=== PATIENT | male | born 1955 | race Caucasian/White ===

== ENCOUNTER 2024-04-14 08:39 | Emergency (ER) | payer OTHER, SELFPAY ==
[2024-04-14 08:45] VITALS: BP 242/111
--- NOTE | 2024-04-14 09:11 | ED.GENMED ---
History of Present Illness
General
Chief Complaint: Blood Pressure Problem
Source: patient and spouse
Exam Limitations: none
Time Seen by Provider: 04/14/24 09:07
Nursing documentation reviewed up to this point in time: agreed with
History of Present Illness
History of Present Illness:
68-year-old male with a past medical history of DON, anxiety who presents to the emergency room with his for evaluation of hypertension. Patient reports that over the past few years when he goes to his annual doctor's appointment he has
noticed his blood pressure has been gradually rising. He says that he had an appointment last week and that his blood pressure was very high�he says between 170 and 190. He says that his primary doctor recommended he watch it closely but did not
start him on any medication. He says that he bought a home blood pressure cuff and has been checking his blood pressure a few times a day over the past few days. He says that he has noticed gradual increase in his blood pressure since then today
peaked over 200 and so he came to the emergency room to be assessed. He complains of some mild fatigue but denies any other complaints. He denies any headache. Denies any change in his vision. He denies any change in speech. Denies any focal
weakness or numbness in his extremities. He denies any chest pain or shortness of breath. He currently only takes medication for anxiety. He has had no recent change in his diet�in fact his offers that he is quite careful with his diet main
intake of salt is from deli meat that he takes at lunch but otherwise low salt intake. He does not exercise very much he admits. He does use nicotine in the form of vaping. Denies drug or alcohol use. Denies any recent stressors.
Past History
Past History
ED Past Medical History: None and Other (Renal insufficiency, diverticulosis, previous prostate cancer with CyberKnife surgery, diverticulitis); Negative HTN, Hypercholesterolemia, IDDM or NIDDM
ED Past Surgical History: None
Social History
Tobacco: Former smoker
Alcohol: None
Family History
Family History: Other (Mother with lung cancer, father with COPD)
Review of Systems
Review of Systems
All Other Systems: ROS reviewed and negative except as documented in HPI and ROS
Constitutional: Reports fatigue; Denies fever
Respiratory: Denies trouble breathing
Cardiac: Denies chest pain
ABD/GI: Denies abdominal pain
: Denies flank pain
Musculoskeletal: Denies edema, neck pain or back pain
Neurological: Denies dizzy, headache, weakness or numbness
Phy Exam
Physical Exam
Physical Exam:
General: Awake, alert, oriented x3; no acute distress
Head: Normocephalic, atraumatic
Eyes: Conjunctiva normal, pupils equal round and reactive to light bilaterally
Throat: Airway intact, handling secretions
Neck: Trachea midline, supple without meningismus
Lungs: Clear to auscultation bilaterally, no wheezing, rales, rhonchi
Heart: Regular rate and rhythm, S3 gallop appreciated
Abd: Soft, non distended, nontender
Neuro: Cranial nerves intact, speech fluid, no motor or sensory deficits
Skin: no rash
Extremities: No edema in extremities, equal pulses in all extremities
Scores
Heart Failure Risk
Heart Failure Risk Score: Not Applicable
Heart Score for Chest Pain Patients
STEMI patient?: Not applicable
Withdrawal Assessment of Alcohol
Withdrawal Assessment Completed?: Not applicable
Course
Orders/Labs/Results
Orders:
Orders
04/14/24 08:50
Electrocardiogram (*1) Urgent
Reason for Study: Hypertension, Benign
EKG- Treatment ONCE
04/14/24 09:17
Vital Signs- Treatment ONCE
Frequency: q30m
04/14/24 09:25
Complete Blood Count/With Diff Urgent
Comprehensive Metabolic Panel Urgent
04/14/24 09:55
HydrALAZINE [Apresoline] 10 mg IV NOW STA
Lisinopril [Zestril] 10 mg PO NOW STA
04/14/24 09:56
Amlodipine [Norvasc] 5 mg PO ONCE ONE
04/14/24 09:58
Lisinopril [Zestril] 10 mg PO NOW STA
Abnormal Lab Results
04/14/24
09:25
RBC 4.60 L 10^6/uL
(4.70-6.10)
Hgb 12.4 L g/dL
(13.0-18.0)
Hct 36.7 L %
(39.0-52.0)
MCV 79.8 L fL
(80.0-94.0)
Absolute Lymphs (auto) 0.9 L 10^3/uL
(1.2-3.4)
Neutrophils % 77.8 H %
(42.2-75.2)
Lymphocytes % 11.3 L %
(20.5-51.1)
BUN 31 H mg/dl
(9-20)
Creatinine 1.5 H mg/dL
(0.7-1.3)
04/14/24 09:25
04/14/24 09:25
Vital Signs
Initial and Last Documented VS:
Initial Vital Signs
Temp Pulse Resp BP Pulse Ox
36.7 C 69 16 242/111 98
04/14/24 08:45 04/14/24 08:45 04/14/24 08:45 04/14/24 08:45 04/14/24 08:45
Last Documented Vital Signs
Temp Pulse Resp BP Pulse Ox
36.7 C 66 16 164/66 95
04/14/24 08:45 04/14/24 11:00 04/14/24 11:02 04/14/24 11:00 04/14/24 11:00
MDM/Problems Addressed
Differential Diagnosis Includes:
Asymptomatic hypertension
MDM/Problems Addressed:
68-year-old male presents with asymptomatic hypertension�gradual increase over the past few years patient has been watching closely over the past week since his recent PCP visit and has noticed that it has been running very high. He arrives in
triage with a blood pressure of 242/111 although it had improved to 197/89 by the time of my assessment without any intervention. Rest of vitals are normal. Physical exam as above. Will plan to check basic screening labs. Will check an EKG.
Will treat blood pressure�will give some IV hydralazine; reasonable to initiate MARIAH inhibitor. Reassess after the above.
Initial labs reviewed: CBC shows marginal anemia otherwise unremarkable. CMP shows creatinine of 1.5 which is consistent with prior labs. Continue to monitor.
Blood pressure is greatly improved with treatment here. Stable for discharge will start on oral lisinopril. He will follow-up with his primary care physician. We spoke at length about his lab work�we discussed his mild microcytic anemia he will
start a multivitamin with iron and have repeat blood work with his primary doctor. We spoke about his creatinine level�this is stable for him, he says that he has had this in the past, possibly related to a case of nephritis as a child. We spoke
about cardiac murmur appreciated on exam today�will refer to cardiology for outpatient follow-up. We spoke about lifestyle adjustments including a low intensity exercise regimen (we discussed going for 10 to 15-minute walk daily to start and
monitoring of sodium intake). Patient very comfortable with this plan. Spoke about return precautions all questions answered.
Acute Exacerbation and/or Progression of Chronic Illness:
Acutely hypertensive managed as above
Acute Exacerbation and/or Progression of Chronic Illness: HTN
*Pulse Oximetry
Patient hypoxic: no
*EKG
Interpreted by ED Provider?: Yes
Heart Rate: 72
Rate: normal
Rhythm: sinus
[place]: normal axis
Interval: first degree heart block
QRS Pattern: normal QRS
Ischemia: no ischemia
*Critical Care Note
Total Time (30-74mins, 75-104mins- exclusive of procedures): Not Applicable
Data Reviewed
Review of Other/Old Records Reveals: Labs and Records
Source: patient and spouse
ED Attending Note
-
Portions of this chart may have been created with voice recognition software.� Occasional wrong word or��sound alike� substitutions may have occurred due to the inherent limitations of voice recognition software.
Discharge Plan
Departure
Patient Disposition: Home (Routine Discharge)
Date of Disposition: 04/14/24
Time of Disposition: 11:08
Patient with high blood pressure during this ER visit?: Yes
Discharge Problem:
Hypertension, Heart murmur, Chronic kidney disease (CKD), Anemia
Instructions: High Blood Pressure (DC)
Prescriptions:
New
lisinopril 10 mg tablet
10 mg PO DAILY Qty: 30 0RF
No Action
alprazolam 0.5 MG tablet
1 mg PO HS
polyethylene glycol 3350 [Miralax] 17 gram Powder In Packet
17 g PO DAILY PRN (Reason: constipation)
sertraline 100 mg tablet
100 mg PO HS
simethicone 80 mg Tablet,Chewable
80 mg PO TIDPRN PRN (Reason: bloating)
acetaminophen [acetaminophen] 325 mg tablet
650 mg PO Q4HPRN PRN (Reason: mild pain) Qty: 1 0RF
oxycodone 5 mg tablet
5 mg PO Q4HPRN PRN (Reason: breakthrough/severe pain) Qty: 8 0RF
amoxicillin-pot clavulanate [amoxicillin-pot clavulanate] 875-125 mg tablet
1 tab PO Q12 Qty: 8 0RF
Referrals:
Berhane Potter MD [Family Provider] - Follow up in 5-7 days
Eulogio Genao DO [Active] - Call in 1-3 days for appt (Police Patrol Officer)
Activity Restrictions/Additional Instructions:
Thank you for visiting the Emergency Department at [facility].
1. Please schedule a follow up appointment as directed. Call first thing tomorrow morning to make an appointment.
2. If indicated, please take your medications as instructed and indicated on discharge paperwork.
3. If any of your symptoms do not improve, or persist, or become more severe within 6-12 hours, please return to the emergency department for further care.
4. Please return to the emergency department if you develop a headache, neck pain/stiffness, fever greater than 100.4F, chest pain, shortness of breath, persistent nausea, vomiting, slurred speech, difficulty walking, numbness/tingling, weakness,
signs of infection or any other symptoms that are worrisome to you.
Please call [phone] if you have any questions.
Interventions
Interventions:
*Risk Screen - Suicide Last Done: 04/14/24 10:04
*General Assessment Last Done: 04/14/24 10:04
*Neglect/Abuse Screening Last Done: 04/14/24 10:04
ED- Fall Risk Assessment Last Done: 04/14/24 11:10
*ED COVID-19 Vaccine History Last Done: 04/14/24 10:04
ED- Cardiac Assessment Last Done: 04/14/24 10:04
ED- Neurological Assessment Last Done: 04/14/24 10:04
ED- Pulmonary Assessment Last Done: 04/14/24 10:04
Discharge Date and Time
Print Language: MALTESE
[2024-04-14 09:21] VITALS: BP 197/89
[2024-04-14 09:36] LABS: % Basophils 0.7 % (0-2); % Immature Granulocytes 0.5 % (0-0.5); % Lymphocytes 11.3 % (20.5-51.1); % Monocytes 7.7 % (1.7-9.3); % Neutrophils 77.8 % (42.2-75.2); Absolute Basophils 0.1 10^3/uL (0-0.2); Absolute Eosinophils 0.2 10^3/uL (0-0.7); Absolute Lymphocytes 0.9 10^3/uL (1.2-3.4); Absolute Monocytes 0.6 10^3/uL (0.1-0.6); Absolute Neutrophils 6.3 10^3/uL (1.4-6.5); Hematocrit 36.7 % (39.0-52.0); Hemoglobin 12.4 g/dL (13.0-18.0); Mean Corp Hgb Conc. 33.8 g/dL (33.0-37.0); Mean Corpuscular Volume 79.8 fL (80.0-94.0); Mean Platelet Volume 9.4 fL (7.4-10.4); Nucleated Red Blood Cells % 0 % (-); Platelet Count 256 10^3/uL (130-400); Red Cell Dist. Width 14.4 % (11.5-14.5); White Blood Cell Count 8.1 10^3/uL (4.8-10.8)
[2024-04-14 09:51] LABS: ALT (SGPT) 16 U/L (0-50); AST (SGOT) 24 U/L (17-59); Albumin 4.5 g/dl (3.5-5.0); Alkaline Phosphatase 65 U/L (38-126); Blood Urea Nitrogen 31 mg/dl (9-20); Calcium 9.6 mg/dl (8.4-10.2); Carbon Dioxide 27 mmol/L (22-30); Chloride 103 mmol/L (98-107); Glucose 95 mg/dl (70-99); Potassium 4.4 mmol/L (3.5-5.1); Sodium 138 mmol/L (135-145); Total Bilirubin 0.6 mg/dl (0.2-1.3); Total Protein 7.3 g/dl (6.3-8.2); eGFR 51.03
[2024-04-14 10:00] VITALS: BP 176/83
[2024-04-14] MEDS: ZESTRIL 10 MG PO (10:01)
[2024-04-14] MEDS: APRESOLINE 10 MG IV (10:01)
[2024-04-14 11:00] VITALS: BP 164/66
== END 2024-04-14 11:26 | disposition home or self-care (01) ==
LOC: EMR 08:39
PROVIDERS: EMERGENCY PHYSICIAN Emergency Medicine; FAMILY PHYSICIAN Family Medicine
DX: R53.83 Other fatigue (principal); I12.9 Hypertensive chronic kidney disease with stage 1 through stage 4 chronic kidney disease, or unspecified chronic kidney disease; N18.9 Chronic kidney disease, unspecified; D64.9 Anemia, unspecified; R01.1 Cardiac murmur, unspecified; I44.0 Atrioventricular block, first degree; D50.9 Iron deficiency anemia, unspecified; G47.33 Obstructive sleep apnea (adult) (pediatric); F41.9 Anxiety disorder, unspecified; K57.92 Diverticulitis of intestine, part unspecified, without perforation or abscess without bleeding; Z79.899 Other long term (current) drug therapy; Z85.46 Personal history of malignant neoplasm of prostate; Z87.891 Personal history of nicotine dependence
CPT/HCPCS: 99284; 96374; 80053; 85025; 93005

== ENCOUNTER 2024-10-06 19:56 | Observation (INO) | payer OTHER, SELFPAY ==
[2024-10-06] VITALS (20 sets, daily range): BP systolic 133–207; BP diastolic 64–97; BMI 27.6; BMI 27.0
[2024-10-06 17:21] LABS: Glucose - Point of Care 130 mg/dl (70-99)
--- NOTE | 2024-10-06 17:30 | CON.NEURO ---
Consultation
Order
Date of Consultation: 10/06/24
Requesting Provider: Emery Robertson DO
Reason for Consult: Stroke alert 17:03
Neurology Consultation Note.
HPI: This is a 68-year-old man who presented to [facility] on 10/06/2024 with diplopia. According to the patient he developed an acute painless horizontal diplopia worse with left lateral gaze that occurred at 10:30 AM today. No
associated dysarthria, dysmetria, weakness, sensory deficits, headache or similar episodes in the past. His symptoms have been persistent prompting the evaluation.
Mr. Bourne admits to discontinuing lisinopril due to Raynaud's symptoms.
ER VS: 200/89, 75, afebrile
EKG: NSR, QTc Int : 428 ms
PDMP: Alprazolam 0.5 Mg 60 tabs filled in on 09/18/2024, 08/21/2024, 07/25/2024.
Labs: FS 130
CT head wo contrast-no active infarcts, mild atrophy, advanced for chronological age
PMH: prostate cancer, HTN, CKD, anemia, DON, DANA, insomnia, AAA, diverticulosis macular degeneration,
PSH: laparoscopic appendectomy
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
FH:uncle�stroke, mother�lung cancer, father�COPD
All:NKDA
ROS: Constitutional: Negative. Negative for chills, fever and unexpected weight change.
HENT: Negative for ear pain, hearing loss, tinnitus and trouble swallowing.
Respiratory: Negative for cough, choking and shortness of breath.
Cardiovascular: Negative for chest pain, palpitations and leg swelling.
Gastrointestinal: Negative for abdominal pain and vomiting.
Endocrine: Negative. Negative for cold intolerance.
Genitourinary: Negative for dysuria, flank pain and urgency.
Musculoskeletal: Negative for back pain, gait problem, neck pain and neck stiffness.
Skin: Negative for rash.
Allergic/Immunologic: Negative. Negative for immunocompromised state.
Neurological: positive for diplopia
Psychiatric/Behavioral: Negative for behavioral problems, confusion and hallucinations.
General: Well developed. In no acute distress.
Cardio: Regular rate and rhythm without murmur. Extremities are without cyanosis or edema.
Neuro:
Mental Status: Alert, oriented to person, place, and date. Normal attention and recall. Good fund of knowledge. Follows complex requests across the midline. Comprehension, naming, and repetition intact. Immediate and delayed recall 3/3.
Cranial Nerves: Pupils are equally round and reactive to light. EOMs full. Horizontal diplopia on left lateral gaze visual cintron full to confrontation. No ptosis. No nystagmus. V1-V3 intact to light touch and pinprick bilaterally, symmetric.
Face symmetric. Normal hearing AU. The palate elevated well. SCMs and traps 5/5. Tongue midline. No dysarthria.
Motor: Normal bulk and tone. No pronator or arm drift. Strength 5/5 throughout. No clonus.
Sensory: Normal LT
Coordination: No dysmetria or tremor.
Gait: deferred
Assessment and Plan:
I. Acute left CN . Differential diagnosis includes vascular versus neuromuscular junction disorder. Not a candidate for IV TNK due to timing of the symptoms onset.
II. Hypertensive emergency
III. DON, CPAP intolerant
-Continue Telemetry monitoring.
-Utilize eyepatch
-Aspiration precautions.
-Cautious lowering of BP by approximately 15 % during the first 24 hours is SBP >220 mmHg or diastolic blood pressure >120 mmHg;
-Restart antihypertensive medications during if BP>140/90 mmHg who are neurologically stable in 24 to 48 hours after stroke onset;
-Brain MRI wo dana
-Start ASA 81 mg QD indefinitely.
-Plavix 75 mg QD for 21 days.
-Lipitor 40 mg QHS.
-MG panel if brain MRI is unremarkable and symptoms ongoing
-Please check HbA1C, LDL.
-DVT prophylaxis.
I personally reviewed all radiology and labs along with past medical records pertinent to current medical problems. Total time spent in patient care is 60 minutes.
Thank you for allowing us to participate in the care of this patient. We will continue to follow. Please do not hesitate to contact us with any questions or concerns.
Subjective/Objective
Subjective Data
Date of Service: October 06, 2024
Objective Data
Vital Signs
Temp Pulse Resp BP Pulse Ox
36.8 C 75 18 200/89 99
10/06/24 17:00 10/06/24 17:00 10/06/24 17:00 10/06/24 17:00 10/06/24 17:00
Patient Allergies
No Known Allergies Allergy (Verified 10/06/24 17:03)
Medications
-
Home Medications
�Medication �Instructions �Recorded
alprazolam 0.5 mg tablet 1 mg PO HS Mental Health/Anxiety 08/04/18
polyethylene glycol 3350 17 gram 17 g PO DAILY PRN constipation 04/25/23
oral powder packet (Miralax)
sertraline 100 mg tablet 100 mg PO HS Mental Health 04/25/23
simethicone 80 mg chewable tablet 80 mg PO TIDPRN PRN bloating 04/25/23
acetaminophen 325 mg tablet 650 mg (2 x 325 mg) PO Q4HPRN PRN 04/26/23
mild pain #1 tab
amoxicillin 875 mg-potassium 1 tab PO Q12 antibiotic #8 tabs 04/26/23
clavulanate 125 mg tablet
oxycodone 5 mg tablet 5 mg PO Q4HPRN PRN 04/26/23
breakthrough/severe pain #8 tabs
lisinopril 10 mg tablet 10 mg PO DAILY #30 tabs 04/14/24
--- NOTE | 2024-10-06 17:33 | ED.CVA ---
History of Present Illness
General
Chief Complaint: CVA/TIA Symptoms
Source: patient and spouse
Time Seen by Provider: 10/06/24 17:30
Onset of Stroke Symptoms
Onset of symptoms known: Yes
Date of onset of symptoms: 10/06/24
Time of onset of symptoms: 10:30
History of Present Illness
History of Present Illness:
68-year-old male presents to the emergency room complaining of diplopia. Patient states that he had a sudden onset of double vision at 1030 this morning. Patient had been awake already and his vision was normal throughout the morning. He denies
associated headache, focal weakness numbness or tingling. His speech is normal. His swallowing is normal. Does not recall ever having double vision in the past. Patient states the symptoms have waxed and waned in severity throughout the course
the day. When he decided to come to the emergency room to double vision was intense making him feel very uncomfortable. Presently it seems to be less intense but his vision is not normal. He describes it more as blurry at this moment.
Past History
Past History
ED Past Medical History: None and Other (Renal insufficiency, diverticulosis, previous prostate cancer with CyberKnife surgery, diverticulitis); Negative HTN, Hypercholesterolemia, IDDM or NIDDM
ED Past Surgical History: None
Social History
Tobacco: Former smoker
Alcohol: None
Family History
Family History: Other (Mother with lung cancer, father with COPD)
Phy Exam
Physical Exam
Physical Exam:
General: Awake, Alert, Oriented X3. No acute distress.
Vitals: unremarkable
Head: Atraumatic
Eyes: Pupils equal, mild left lateral rectus palsy
Throat: Airway intact, no exudates
Neck: Trachea midline
Lungs: Clear and equal b/l
Heart: Regular rate, no murmurs
Abd: Soft, Nontender, No pulsatile mass
Neuro: Muscle strength 5/5, sensation 5/5, cerebellar exam intact
Skin: Warm, dry, no rash
Extremities: pulses equal b/l, no edema
Course
Orders/Labs/Results
Orders:
Orders
10/06/24 17:09
CT HEAD STROKE ALERT W/o Cont Urgent
Reason For Exam: double vision
10/06/24 17:30
Aspirin Chewable [Low Strength Aspirin] 324 mg PO NOW STA
10/06/24 17:31
Electrocardiogram (*1) Urgent
Reason for Study: TIA/Stroke
EKG- Treatment ONCE
10/06/24 17:33
CT Head & Neck Angio W/wo IV Urgent
Comment:
Reason For Exam: diplopia
10/06/24 17:36
Basic Metabolic Panel Urgent
Complete Blood Count/With Diff Urgent
10/06/24 19:36
Admit/Transfer Patient As Directed
Co-Sign Provider:
Level of Care: Observation services
Assign to:: Telemetry
Physician / Group: hospitalist
Diagnosis: TIA
Reason for Telemetry: CVA/TIA
Date to Stop Telemetry: 10/09/24
Time to Stop Telemetry: 11:00
PRN Pain Medication Management As Directed
May give lesser potent ordered pain med per pt: Yes
preference::
Protocol:: Medication orders for pain may be administered in a
manner that supports deferring to patient preference
when the pt is:
- Requesting an ordered lesser potent pain medication.
Least to most potent pain medications are defined
as: acetaminophen < NSAID < tramadol < opioids
(morphine, oxycodone, hydromorphone).
- Requesting a lesser dose of the same medication IF
ORDERED.
- Requesting a less intrusive route of administration
if both routes are prescribed by the provider (PO <
IV).
10/06/24 19:37
Code Status As Directed
Resuscitation Status: Full Code
10/06/24 21:29
Acetaminophen [Tylenol/Feverall] 650 mg RECTAL Q4HPRN PRN
Acetaminophen [Tylenol] 650 mg PO Q4HPRN PRN
Magnesium Hydroxide [Milk of Magnesia] 30 ml PO BIDPRN PRN
10/06/24 21:29
Echo 2D MMode Color/Doppler Routine
Reason for Study: stroke/TIA
NEUROLOGY CONSULT Urgent
Consulting Provider: Lavinia Etienne
Was physician already notified: Yes
Reason for consult: TIA, diploplia
MR Brain Without Contrast Routine
Comment:
Reason For Exam: stroke/TIA
Recent pill cam endoscopy?: No
Activity As Directed
Activity Level: With Assistance
NIH Stroke Scale As Directed
Directions: Per protocol
Comment: every shift and with any change in condition or mental status
Neurological Checks As Directed
Frequency: q4h
Additional Instructions:: q4h x 24h upon admission to the floor, then qshift & with any change in condition
and mental status
Patient Education As Directed
Type: Stroke education packet
Comment: provide to patient and family
Pneumatic Compression Sleeves As Directed
Type: Knee high
Vital Signs As Directed
Frequency: Per unit guidelines
DX Deep Vein Thrombosis Video Routine
10/06/24 22:00
Alprazolam [Xanax] 0.5 mg PO HS
10/07/24 06:00
Basic Metabolic Panel IN AM
Cardiovascular Evaluation IN AM
Glycohemoglobin (HgbA1c) IN AM
Magnesium IN AM
10/07/24 08:00
Amlodipine [Norvasc] 2.5 mg PO DAILY
Aspirin Chewable [Low Strength Aspirin] 81 mg PO DAILY
Clopidogrel Bisulfate [Plavix] 75 mg PO DAILY
10/07/24 18:00
Atorvastatin [Lipitor] 40 mg PO QPM
Enoxaparin Sodium [Lovenox] 40 mg SC QPM
10/09/24 11:00
DC Protocol for Telemetry ONCE
Abnormal Lab Results
10/06/24 10/06/24
17:19 17:36
RBC 4.50 L 10^6/uL
(4.70-6.10)
Hgb 12.2 L g/dL
(13.0-18.0)
Hct 36.8 L %
(39.0-52.0)
Eosinophils % 8.1 H %
(0-6)
BUN 27 H mg/dl
(9-20)
Creatinine 1.6 H mg/dL
(0.7-1.3)
Glucose 123 H mg/dl
(70-99)
POC Glucose 130 H mg/dl
(70-99)
10/06/24 17:36
10/06/24 17:36
Vital Signs
Initial and Last Documented VS:
Initial Vital Signs
Temp Pulse Resp BP Pulse Ox
98.3 F 75 18 200/89 99
10/06/24 17:00 10/06/24 17:00 10/06/24 17:00 10/06/24 17:00 10/06/24 17:00
Last Documented Vital Signs
Temp Pulse Resp BP Pulse Ox
97.7 F 71 16 163/89 99
10/06/24 23:42 10/06/24 23:42 10/06/24 23:42 10/06/24 23:42 10/06/24 23:42
MDM/Problems Addressed
Differential Diagnosis Includes:
Bleed, CVA, aneurysm, neuromuscular disorder
MDM/Problems Addressed:
Patient made a stroke alert in triage. Initial head CT does not show evidence for an acute infarct or bleed. Neurology and to see the patient. Recommend CTA. Patient noted to be quite hypertensive. Initial blood pressure in triage is in the
200s and initial blood pressure in the treatment area is 217 systolic. If it remains elevated we will initiate antihypertensives.
Patient's blood pressure improved without intervention. CTA does not show any large vessel occlusion or aneurysm. Patient will be admitted to the hospitalist service for stroke workup as recommended by neurology
*Radiology
Radiology exam reviewed: radiology read reviewed
*EKG
Interpreted by ED Provider?: Yes
Heart Rate: 71
Rate: normal
Rhythm: sinus
[place]: normal axis
Interval: first degree heart block
QRS Pattern: normal QRS
Ischemia: no ischemia
*Candy Department Manager Interpretation
Rate: normal
Heart Rate: 71
Rhythm: sinus
*Critical Care Note
Total Time (30-74mins, 75-104mins- exclusive of procedures): 33 min
comment:
Critical care statement: A total of 33 minutes of critical care time was provided for this patient. This includes management of unstable vital signs, evaluation of the patient at bedside, reviewing the patient's pertinent medical records, discussion
with consultants, review of old EKGs and review of pertinent medical records. This time with separate from time utilized to perform the aforementioned documented procedures
Patient Management
Social determinants of health affecting care: Strong social support
ED Attending Note
-
Portions of this chart may have been created with voice recognition software.� Occasional wrong word or��sound alike� substitutions may have occurred due to the inherent limitations of voice recognition software.
Discharge Plan
Departure
Patient Disposition: Admit
Date of Disposition: 10/06/24
Time of Disposition: 18:53
Admit to: IMU
Presentation/result/management discussed w/ accepting MD/DO: Hospitalist
Condition: Fair
Discharge Problem:
Atrial fibrillation with RVR, CHF (congestive heart failure)
Interventions
Interventions:
*Risk Screen - Suicide Last Done: 10/06/24 17:42
*General Assessment Last Done: 10/06/24 17:42
*Neglect/Abuse Screening Last Done: 10/06/24 17:42
*ED COVID-19 Vaccine History Last Done: 10/06/24 21:59
*Nursing Disposition Last Done: 10/06/24 21:39
ED- Pulmonary Assessment Last Done: 10/06/24 17:43
ED- Neurological Assessment Last Done: 10/06/24 17:21
ED- Cardiac Assessment Last Done: 10/06/24 17:43
ED Swallowing Screen Last Done: 10/06/24 17:40
Discharge Date and Time
Discharge Date/Time: 10/06/24 21:30
[2024-10-06] MEDS: LOW STRENGTH ASPIRIN 324 MG PO (17:41)
[2024-10-06 17:55] LABS: % Basophils 1.3 % (0-2); % Eosinophils 8.1 % (0-6); % Immature Granulocytes 0.4 % (0-0.5); % Lymphocytes 22.2 % (20.5-51.1); % Monocytes 7.5 % (1.7-9.3); % Neutrophils 60.5 % (42.2-75.2); Absolute Basophils 0.1 10^3/uL (0-0.2); Absolute Eosinophils 0.6 10^3/uL (0-0.7); Absolute Lymphocytes 1.5 10^3/uL (1.2-3.4); Absolute Monocytes 0.5 10^3/uL (0.1-0.6); Absolute Neutrophils 4.2 10^3/uL (1.4-6.5); Hematocrit 36.8 % (39.0-52.0); Hemoglobin 12.2 g/dL (13.0-18.0); Mean Corp Hgb Conc. 33.2 g/dL (33.0-37.0); Mean Corpuscular Hgb 27.1 pg (27.0-31.0); Mean Corpuscular Volume 81.8 fL (80.0-94.0); Mean Platelet Volume 9.3 fL (7.4-10.4); Nucleated Red Blood Cells % 0 % (-); Platelet Count 235 10^3/uL (130-400); Red Cell Dist. Width 14.5 % (11.5-14.5); White Blood Cell Count 6.9 10^3/uL (4.8-10.8)
[2024-10-06 18:01] LABS: Blood Urea Nitrogen 27 mg/dl (9-20); Calcium 9.2 mg/dl (8.4-10.2); Carbon Dioxide 27 mmol/L (22-30); Chloride 101 mmol/L (98-107); Estimated Creatinine Clearance 47 ml/min; Glucose 123 mg/dl (70-99); Potassium 4.3 mmol/L (3.5-5.1); Sodium 138 mmol/L (135-145); eGFR 47.23
--- NOTE | 2024-10-06 19:25 | HPS.HSE ---
Family Physician
-
Family Physician: Berhane Potter
Chief Complaint
-
Double vision
History of Present Illness
This is a 68-year-old with past medical history of hypertension on dietary management, DON not on CPAP generalized anxiety disorder, history of prostate cancer who presents to the emergency department with acute episode of fall horizontal diplopia
that started at around 10 AM today.
Patient reports sitting down talking to his when he suddenly developed horizontal diplopia. He denies feeling dizzy or lightheaded. He was able to speak. He denied any facial droop. He denied any headache nausea or vomiting. Patient felt
that this may be related to his elevated blood pressure and when he checked his blood pressure it was higher than usual around 170 systolic at home. He did take a dose of his lisinopril 10 mg. Patient reports that he was unable to tolerate
lisinopril due to Raynaud's phenomenon and has not been taking any antihypertensives. He denies any palpitations. Patient reported that the symptoms subsided but did not resolve completely over the next few hours. He did go to run some errands
and during that he still had diplopia when looking in lateral gaze. This prompted ED evaluation. Patient denies any prior such episodes. He denied any focal weakness. He denies any numbness or tingling.
In the emergency department the patient reported to me that his double vision has completely resolved at this time. He was seen by neurology.
Blood pressure was 195/80 initially temp 98.3 pulse of 74 satting 100%. ECG showed normal sinus rhythm with 4 degree AV block at a rate of [address] or T wave changes and unchanged from prior. CT of the head shows no acute intracranial
abnormality. CBC was unremarkable. Is BUN and creatinine are unchanged from prior showing a chronic CKD with a creatinine of 1.6. Electrolytes were normal. He had a CT angio which shows no significant occlusion dissection aneurysm or bleed.
Medical History
Past Medical History
Past Medical History: Reports Cancer (Prostate CA), HTN, Psychiatric (Generalized anxiety) and Other (DON)
Additional Past Medical History:
AAA
Past Surgical History: Reports Appendectomy
Social History
Tobacco: Vaping (Occasional)
Alcohol: Occasional
Drug: None
Personal:
Living: With Family
Employment: Employed
Family History
Family History: Not pertinent
Allergies / Home Medications
Allergies reflects when Allergies were last updated in [facility].
Home Medications with original date entered in [facility]
Allergy/Medication List:
Allergies
Allergy/AdvReac Type Severity Reaction Status Date / Time
No Known Allergies Allergy Verified 10/06/24 17:03
Home Medications
alprazolam 0.5 mg tablet 0.5 - 1 mg PO HS Mental Health/Anxiety 08/04/18
ascorbic acid (vitamin C) 500 mg tablet (Vitamin C) 500 mg PO DAILY 10/06/24
lisinopril 10 mg tablet 10 mg PO DAILYPRN PRN High BP 10/06/24
therapeutic multivitamin 1 tab PO DAILY 10/06/24
Review of Systems
-
History Source: Patient
Constitutional: Reports No Symptoms
EENT: Reports No Symptoms
Respiratory: Reports No Symptoms
Cardiac: Reports No Symptoms
Abdomen/GI: Reports No Symptoms
: Reports No Symptoms
Musculoskeletal: Reports No Symptoms
Skin: Reports No Symptoms
Neurological: Reports Other (horizontal diplopia)
Endocrine: Reports No Symptoms
Hematologic/Lymphatic: Reports No Symptoms
Psych: Reports No Symptoms
Physical Exam
Vital Signs
Vital Signs
Temp Pulse Resp BP Pulse Ox
98.3 F 64 12 168/65 98
10/06/24 17:00 10/06/24 19:00 10/06/24 19:00 10/06/24 19:00 10/06/24 19:00
Physical Exam
General: Well Developed, Well Nourished, No Apparent Distress and Comfortable
HEENT: NormoCephalic, Anicteric, Moist mucous membranes, Atraumatic, PERRLA and No Ptosis
Respiratory: Clear
Cardiac: S1/S2 and Regular Rhythm
Breast: Deferred by me
GI: Soft, Non Tender, Non Distended and Normal Bowel Sounds
Rectal: Deferred by Provider
Genito-urinary: Deferred by me
Musculoskeletal: No Clubbing, No Cyanosis and No Edema
Neuro: AO x 3, No Motor Deficits, Cranial Nerves Intact and No Sensory Deficits; No Slurred Speech, Facial Droop or Tremors
Hematologic/Lymphatic: No Lymphadenopathy
Psych: Calm
Laboratory Results
-
10/06/24 17:36
10/06/24 17:36
Data Reviewed
-
CT Scan: Report Reviewed by me
Medical Tests (Nuc Med, Echo, EKG etc): Image Personally Visualized and interpreted
Lab Data: Labs Reviewed by me
Old Records: Reviewed
Impression/Plan
-
IMPRESSION:
68 y.o with h/o hypertension presents to ED with episode of horizontal diplopia since around 10 am. Currently resolved. NIHSS = 0 for me. Symptoms did last several hours c/w TIA. Exam is negative for any gaze palsy, visual field defect,
weakness, numbness or parasthesias. No aphasia or facial droop.
PLAN:
1. TIA - Given improvement, symptoms c/w TIA, given prior gaze palsy cannot rule out neuromuscular process.
- admit to telemetry observation
- check cardiovascular panel and a1c
- MRI in am, Echo if possible on monda
- ASA 81, Plavix 72 QD x 21 days, Lipitor 40
- myasthenia penal if MRI is unremarkable AND symptoms ongoing
- neuro consulted and following, appreciate recs
2. HTN -
- permissive hypertension for the 1st 24 hours, till 10 am tomorrow
- hydralazine prn SBP > 200 systolic or DBP > 120
- can start norvasc 2.5 tomorrow
3. DON - intolerant of cpap
- oxygen prn
- xanax hs prn
DVT PPX -lovenox sq
Code status - full code
[2024-10-06] MEDS: XANAX 0.5 MG PO (22:48)
--- NOTE | 2024-10-07 00:20 | PTCARENOTE ---
ax3 nih0- stroke packet given
[2024-10-07 03:24] VITALS: BP 171/81
[2024-10-07 07:53] VITALS: BP 146/75
[2024-10-07 08:03] LABS: Blood Urea Nitrogen 30 mg/dl (9-20); Calcium 8.8 mg/dl (8.4-10.2); Carbon Dioxide 23 mmol/L (22-30); Chloride 103 mmol/L (98-107); Estimated Creatinine Clearance 47 ml/min; Glucose 96 mg/dl (70-99); HDL Cholesterol 45 mg/dl; LDL Cholesterol, Calculated 156 mg/dl; Magnesium 2.3 mg/dl (1.6-2.3); Potassium 4.4 mmol/L (3.5-5.1); Sodium 138 mmol/L (135-145); Total Cholesterol 231 mg/dl (50-199); Triglyceride 150 mg/dl (10-149); Very Low Density Lipoprotein 30 mg/dl (0-30); eGFR 47.23
[2024-10-07] MEDS: LOW STRENGTH ASPIRIN 81 MG PO (09:19)
[2024-10-07] MEDS: PLAVIX 75 MG PO (09:19)
[2024-10-07] MEDS: NORVASC 2.5 MG PO (09:19)
[2024-10-07 09:45] LABS: Glycohemoglobin (HgbA1c) 5.1 % (4.0-5.6)
[2024-10-07 11:13] VITALS: BP 186/102
--- NOTE | 2024-10-07 11:38 | W.PN.NEURO.1 ---
Today's Communication / Plan
-
.
Subjective/Objective
Subjective Data
Date of Service: October 07, 2024
Neurology follow-up note.
Mr. Bourne reports resolution of diplopia within 24 hours. Reports of headache, change in strength, sensation, dysarthria or dysphagia.
The patient continues to be hypertensive up to 186/102, afebrile.
Brain MRI wo dana-no acute intracranial abnormality noted. Mild atrophy. Chiari I malformation.
LDL 156, hemoglobin A1c�5.1.
Tele-regular.
PMH: prostate cancer, HTN, CKD, anemia, DON, DANA, insomnia, AAA, diverticulosis macular degeneration,
PSH: laparoscopic appendectomy
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
FH:uncle�stroke, mother�lung cancer, father�COPD
All:NKDA
ROS: Constitutional: Negative. Negative for chills, fever and unexpected weight change.
HENT: Negative for ear pain, hearing loss, tinnitus and trouble swallowing.
Respiratory: Negative for cough, choking and shortness of breath.
Cardiovascular: Negative for chest pain, palpitations and leg swelling.
Gastrointestinal: Negative for abdominal pain and vomiting.
Endocrine: Negative. Negative for cold intolerance.
Genitourinary: Negative for dysuria, flank pain and urgency.
Musculoskeletal: Negative for back pain, gait problem, neck pain and neck stiffness.
Skin: Negative for rash.
Allergic/Immunologic: Negative. Negative for immunocompromised state.
Neurological: positive for transient diplopia
General: Well developed. In no acute distress.
Cardio: Regular rate and rhythm without murmur. Extremities are without cyanosis or edema.
Neuro:
Mental Status: Alert, oriented to person, place, and date. Normal attention and recall. Good fund of knowledge. Follows complex requests across the midline. Comprehension, naming, and repetition intact. Anxious, labile mood.
Cranial Nerves: Pupils are equally round and reactive to light. EOMs full. No ptosis. No nystagmus. V1-V3 intact to light touch and pinprick bilaterally, symmetric. Face symmetric. Normal hearing AU. The palate elevated well. SCMs and
traps 5/5. Tongue midline. No dysarthria.
Motor: Normal bulk and tone. No pronator or arm drift. Strength 5/5 throughout. No clonus.
Sensory: Normal LT
Coordination: No dysmetria or tremor.
Gait: deferred
Assessment and Plan:
I. TIA, less likely neuromuscular junction disorder
II. Hypertensive emergency
III. DLP
IV. Chiari I malformation.
-Continue Telemetry monitoring.
-Blood pressure goal�normotension
-Continue DAPT for 21 days
-Lipitor 40 mg QHS. LDL goal<100
-MG panel, TFTs
-TTE
-Outpatient Holter monitoring
-Had a prolonged conversation with the patient about differential diagnosis, management plan, indications for TTE and the risks of AMA.
-DVT prophylaxis.
I personally reviewed all radiology and labs along with past medical records pertinent to current medical problems. Total time spent in patient care is 60 minutes.
Thank you for allowing us to participate in the care of this patient. We will continue to follow. Please do not hesitate to contact us with any questions or concerns
Objective Data
Vital Signs
Temp Pulse Resp BP Pulse Ox
36.7 C 62 14 186/102 100
10/07/24 11:13 10/07/24 11:13 10/07/24 11:13 10/07/24 11:13 10/07/24 11:13
Lab Results
10/06/24 17:36
10/07/24 06:30
Sodium 138 mmol/L (135-145) 10/07/24 06:30
Potassium 4.4 mmol/L (3.5-5.1) 10/07/24 06:30
BUN 30 mg/dl (9-20) H 10/07/24 06:30
Glucose 96 mg/dl (70-99) 10/07/24 06:30
Calcium 8.8 mg/dl (8.4-10.2) 10/07/24 06:30
LDL Cholesterol, Calc 156 mg/dl 10/07/24 06:30
Patient Allergies
No Known Allergies Allergy (Verified 10/06/24 17:03)
Vital Signs and Labs
-
Vital Signs and Labs:
Vital Signs
Temp Pulse Resp BP Pulse Ox
36.7 C 62 14 186/102 100
10/07/24 11:13 10/07/24 11:13 10/07/24 11:13 10/07/24 11:13 10/07/24 11:13
Lab Results
10/06/24 17:36
10/07/24 06:30
Sodium 138 mmol/L (135-145) 10/07/24 06:30
Potassium 4.4 mmol/L (3.5-5.1) 10/07/24 06:30
BUN 30 mg/dl (9-20) H 10/07/24 06:30
Glucose 96 mg/dl (70-99) 10/07/24 06:30
Calcium 8.8 mg/dl (8.4-10.2) 10/07/24 06:30
LDL Cholesterol, Calc 156 mg/dl 10/07/24 06:30
Medications
-
Medications:
Generic Name Dose Route Start Last Admin
Trade Name Freq PRN Reason Stop Dose Admin
Acetaminophen 650 mg 10/06/24 21:29
Acetaminophen 650 Mg Rectal Suppository RECTAL 11/03/24 21:28
Q4HPRN PRN
SHIELDS, mild pain, or temp >100.4F
Acetaminophen 650 mg 10/06/24 21:29
Acetaminophen 325 Mg Tablet PO 11/03/24 21:28
Q4HPRN PRN
SHIELDS, mild pain, or temp >100.4F
Alprazolam 0.5 mg 10/06/24 22:00 10/06/24 22:48
Alprazolam 0.5 Mg Tablet PO 11/03/24 21:59 0.5 mg
HS THANH Administration
Amlodipine Besylate 2.5 mg 10/07/24 08:00 10/07/24 09:19
Amlodipine 2.5 Mg Tablet PO 11/04/24 07:59 2.5 mg
DAILY THANH Administration
Aspirin 81 mg 10/07/24 08:00 10/07/24 09:19
Aspirin 81 Mg Chewable Tablet PO 11/04/24 07:59 81 mg
DAILY THANH Administration
Atorvastatin Calcium 40 mg 10/07/24 18:00
Atorvastatin (Lipitor) 40 Mg Tablet PO 11/04/24 17:59
QPM THANH
Clopidogrel Bisulfate 75 mg 10/07/24 08:00 10/07/24 09:19
Clopidogrel 75 Mg Tablet PO 11/04/24 07:59 75 mg
DAILY THANH Administration
Enoxaparin Sodium 40 mg 10/07/24 18:00
Enoxaparin Sodium 40 Mg/0.4 Ml Syringe SC 11/04/24 17:59
QPM THANH
Magnesium Hydroxide 30 ml 10/06/24 21:29
Milk Of Magnesia 30 Ml Cup PO 11/03/24 21:28
BIDPRN PRN
constipation
Home Medications
-
Home Medications
alprazolam 0.5 mg tablet 0.5 - 1 mg PO HS Mental Health/Anxiety 08/04/18
ascorbic acid (vitamin C) 500 mg tablet (Vitamin C) 500 mg PO DAILY 10/06/24
lisinopril 10 mg tablet 10 mg PO DAILYPRN PRN High BP 10/06/24
therapeutic multivitamin 1 tab PO DAILY 10/06/24
[2024-10-07] MEDS: APRESOLINE 100 MG PO ×2 (13:12→17:02)
[2024-10-07] MEDS: NORVASC 10 MG PO (13:12)
--- NOTE | 2024-10-07 13:16 | W.PN.HOSP.TC ---
Today's Communication/Plan
-
See bold
Assessment / Plan
Assessment / Plan
HPI: This is a 68-year-old man who presented to [facility] on 10/06/2024 with diplopia. According to the patient he developed an acute painless horizontal diplopia worse with left lateral gaze that occurred at 10:30 AM today. No
associated dysarthria, dysmetria, weakness, sensory deficits, headache or similar episodes in the past. His symptoms have been persistent prompting the evaluation.
Mr. Bourne admits to discontinuing lisinopril due to Raynaud's symptoms.
TIA
Transient diplopia
-MRI negative for stroke
-Appreciate neurology input, recommend ASA 81 mg daily, Plavix 75 mg daily x 21 days, Lipitor 40 mg daily
-LDL 156, A1C 5.1
-Keep in hospital to control BP
Hypertensive emergency
-BP 186/102
-Start Norvasc 10 mg daily, hydralazine 100 mg 3 times daily until Norvasc becomes effective
DON - intolerant of cpap
- oxygen prn
- xanax hs prn
DVT PPX -lovenox sq
Code status - full code
Total time spent to see the patient on the floor, examine the patient, review data and lab results, discuss treatment plan with patient, nursing staff around 50 minutes.
Physical Exam
General: No acute distress
HEENT: Normocephalic, Atraumatic, EOMI, MMM
Respiratory: Clear to Auscultation bilaterally
Cardiac: Normal S1/S2, Regular Rate and Rhythm
GI: Soft, Nontender, Nondistended, Normal Bowel Sounds
Extremities: No Clubbing, Cyanosis, or Edema
Neuro: Nonfocal/Grossly Intact
Psych: Calm, Cooperative
Derm: No Visible lesions
Anticipated Discharge: Within 24 hours
Subjective/Interval History
-
Date of Service: October 07, 2024
Diplopia resolved. Denies dysarthria, dysphagia. No focal weakness. No headache. No nausea, no vomiting.
Objective Data
-
Labs:
Laboratory Results
10/07/24
06:30
Sodium Pending
Potassium Pending
Chloride Pending
Carbon Dioxide Pending
BUN Pending
Creatinine Pending
Glucose Pending
Calcium Pending
Vital Signs:
Vital Signs
Temp Pulse Resp BP Pulse Ox
98.1 F 65 16 171/81 98
10/07/24 03:24 10/07/24 03:24 10/07/24 03:24 10/07/24 03:24 10/07/24 03:24
I&O
10/06/24 10/07/24 10/08/24
06:59 06:59 06:59
Intake Total 480 / 480
Balance 480 / 480
[2024-10-07 15:06] VITALS: BP 177/78
--- NOTE | 2024-10-07 16:00 | PTCARENOTE ---
Patient c/o heart palpitations. Patient remains in SR 80 on monitor, BP 177/78. Patient states, 'My hands are shaking. I am worried.' RN provided emotional support. Patient started crying and states, 'I think I am having a panic attack.' RN stayed
with patient until symptoms resolved.
--- NOTE | 2024-10-07 16:06 | CM ---
CM following re: d/c planning.
CM met with pt at bedside to complete IA.
Pt from home, resides with .
Pt states he is independent with mobility and ADLs.
He drives.
He does not anticipate any d/c needs.
PCP is Dr. Potter and pharmacy [facility] in [place].
Family transport home at time of d/c.
[2024-10-07] MEDS: LOVENOX 40 MG SC (17:02)
[2024-10-07] MEDS: LIPITOR 40 MG PO (17:02)
[2024-10-07 17:20] LABS: TSH 0.93 uIU/ml (0.47-4.68)
--- NOTE | 2024-10-07 17:28 | PTCARENOTE ---
Patient resting comfortably. No further c/o palpitations.
[2024-10-07 19:30] VITALS: BP 137/62
[2024-10-07] MEDS: APRESOLINE PO (22:28)
[2024-10-07] MEDS: XANAX 0.5 MG PO (22:28)
[2024-10-07 22:53] VITALS: BP 143/61
[2024-10-08 03:24] VITALS: BP 100/67
[2024-10-08 07:10] VITALS: BP 133/72
[2024-10-08] MEDS: NORVASC 10 MG PO (09:21)
[2024-10-08] MEDS: APRESOLINE PO (09:22)
[2024-10-08] MEDS: LOW STRENGTH ASPIRIN 81 MG PO (09:23)
[2024-10-08] MEDS: PLAVIX 75 MG PO (09:23)
--- NOTE | 2024-10-08 10:41 | W.PN.HOSP.TC ---
Today's Communication/Plan
-
d/c
Assessment / Plan
Assessment / Plan
68 y/o M who presented with CC diplopia. According to the patient he developed an acute painless horizontal diplopia worse with left lateral gaze that occurred at 10:30 AM today. No associated dysarthria, dysmetria, weakness, sensory deficits,
headache or similar episodes in the past. His symptoms were persistent prompting the evaluation. He admits to discontinuing lisinopril due to Raynaud's symptoms.
Gen: NAD, AAOx3.
Eyes: EOMI, PERRLA, no scleral icterus.
Neck: supple.
CV: RRR, +S1/S2, no m/r/g.
Resp: CTAB, no rales, wheezes, or rhonchi.
Abd: +BS, soft, NT, ND
Skin: No rashes.
Neuro: CN 2-12 intact, non-focal.
Psych: Normal mood and affect.
TIA:
-presented with transient diplopia
-MRI negative for stroke
-Appreciate neurology input, recommend ASA 81 mg daily, Plavix 75 mg daily x 21 days, Lipitor 40 mg daily
-LDL 156, A1C 5.1
-Case discussed with Dr. He via [facility] at 0911 on 10/08/24 and he has cleared the pt for discharge.
Hypertensive emergency:
-BP 186/102 in the setting of TIA
-started on Norvasc
-was given doses of PO Hydralazine
DON, intolerant of CPAP
FULL/lovenox
Total time spent on d/c = 31 min. This included today's physical exam, progress note, review of laboratory and diagnostic data, preparation of discharge documents and prescriptions, and discussions about the pt's hospital course and discharge plan
with the patient and other medical collections involved in the patient's care.
Anticipated Discharge: Today
Subjective/Interval History
-
Date of Service: October 08, 2024
No new or acute complaints.
Objective Data
-
Vital Signs:
Vital Signs
Temp Pulse Resp BP Pulse Ox
98.5 F 95 16 133/72 96
10/08/24 07:10 10/08/24 07:10 10/08/24 07:10 10/08/24 09:21 10/08/24 07:10
I&O
10/07/24 10/08/24 10/09/24
06:59 06:59 06:59
Intake Total 480 / 480 1440 / 1440 480 / 480
Balance 480 / 480 1440 / 1440 480 / 480
[2024-10-08 11:29] VITALS: BP 143/76
--- NOTE | 2024-10-08 11:40 | CM ---
Patient seen bedside.
Per patient for d/c today.
No needs per patient.
Patient has transportation home.
Plan: home no needs.
--- NOTE | 2024-10-08 14:13 | W.PN.UPDATE ---
Update Note
Progress Note Update
Primary diagnoses:
Transient ischemic attack due to hypertensive emergency
Secondary diagnoses:
Obstructive sleep apnea, intolerant of CPAP
Consultants:
Neurology
Imaging:
Echo: Normal left ventricular size and function. Normal regional wall motion. Mild
concentric left ventricular hypertrophy. LV ejection fraction is 62% by
volumetric assessment. Diastolic function indeterminate.
Mitral valve opens normally. Thickened mitral valve leaflets. Mitral annular
calcification. Mild mitral regurgitation.
Trileaflet aortic valve. Thickened aortic valve with normal leaflet excursion.
Mild to moderate aortic regurgitation.
There is no cardiac embolic source seen.
CTA head/neck: Normal. No evidence of branch occlusion or significant intracranial stenosis.
CT brain: No focal or acute intracranial abnormalities. Mild diffuse cortical and cerebellar atrophy.
MRI brain: No acute intracranial abnormality noted. Mild atrophy. Incidental Chiari I malformation.
Hospital course: 68-year-old male who initially presented on September 28, 2024 with a chief complaint of double vision as outlined in the H&P done on admission. He had suddenly developed horizontal diplopia. He noted his blood pressure was more
elevated than usual with a systolic of 170. He was having difficulty tolerating lisinopril at home due to Raynaud's phenomenon. His symptoms resolved by the time he arrived at the ER. Initial blood pressure was 195/80. Imaging above. The
patient was allowed for permissive hypertension. He was started on aspirin and Plavix as well as statin. He was seen in consultation by neurology. MRI of the brain was negative for acute CVA. It was recommended that the patient be on lifelong
aspirin and Plavix for 21 days total. He was continued on statin on discharge. Patient was started on Norvasc and did receive a few doses of oral hydralazine. He was discharged on Norvasc medically stable condition.
== END 2024-10-08 12:45 | disposition home or self-care (01) ==
LOC: 1 ACUTE 19:56
PROVIDERS: ADMITTING PHYSICIAN Internal Medicine; ATTENDING PHYSICIAN Internal Medicine; CONSULT PHYSICIAN Psychiatry & Neurology Neurology; EMERGENCY PHYSICIAN Emergency Medicine; FAMILY PHYSICIAN Family Medicine
DX: I16.1 Hypertensive emergency (principal); G45.9 Transient cerebral ischemic attack, unspecified; H53.2 Diplopia; G31.9 Degenerative disease of nervous system, unspecified; G93.5 Compression of brain; E78.00 Pure hypercholesterolemia, unspecified; N18.9 Chronic kidney disease, unspecified; E11.22 Type 2 diabetes mellitus with diabetic chronic kidney disease; I50.9 Heart failure, unspecified; I13.0 Hypertensive heart and chronic kidney disease with heart failure and stage 1 through stage 4 chronic kidney disease, or unspecified chronic kidney disease; I48.91 Unspecified atrial fibrillation; I73.00 Raynaud's syndrome without gangrene; G47.00 Insomnia, unspecified; F41.1 Generalized anxiety disorder; D64.9 Anemia, unspecified; F17.290 Nicotine dependence, other tobacco product, uncomplicated; H35.30 Unspecified macular degeneration; G47.33 Obstructive sleep apnea (adult) (pediatric); Z85.46 Personal history of malignant neoplasm of prostate; Z87.19 Personal history of other diseases of the digestive system; Z80.1 Family history of malignant neoplasm of trachea, bronchus and lung; Z83.6 Family history of other diseases of the respiratory system; Z91.148 Patient's other noncompliance with medication regimen for other reason; Z82.3 Family history of stroke; Z86.79 Personal history of other diseases of the circulatory system
CPT/HCPCS: 70450; 70496; 70498; 70551; 80048; 80061; 82962; 83036; 83735; 84443; 85025; 93005; 93306; 99291; G0378; Q9967

== ENCOUNTER → 2024-11-07 10:06 | Outpatient (REF) | payer OTHER, SELFPAY | LOC: RCS 10:06 | PROVIDERS: ATTENDING PHYSICIAN Internal Medicine Cardiovascular Disease; FAMILY PHYSICIAN Family Medicine | DX: I10 Essential (primary) hypertension (principal) | CPT/HCPCS: 93225; 93226 ==

== ENCOUNTER → 2024-11-30 12:35 | Outpatient (REF) | payer OTHER, SELFPAY | LOC: RCS 12:35 | PROVIDERS: ATTENDING PHYSICIAN Internal Medicine Cardiovascular Disease; FAMILY PHYSICIAN Family Medicine | DX: I47.29 Other ventricular tachycardia (principal) | CPT/HCPCS: 93017; 93350 ==

== ENCOUNTER → 2024-12-07 09:32 | Outpatient (REF) | payer OTHER, SELFPAY | LOC: DHSLP 09:32 | PROVIDERS: ATTENDING PHYSICIAN Psychiatry & Neurology Neurology; FAMILY PHYSICIAN Chiropractor | DX: G47.33 Obstructive sleep apnea (adult) (pediatric) (principal) | CPT/HCPCS: 95800 ==

== ENCOUNTER 2025-02-12 07:27 | Emergency (ER) | payer OTHER, SELFPAY ==
[2025-02-12 07:28] VITALS: BP 140/102
--- NOTE | 2025-02-12 07:59 | ED.GENMED ---
History of Present Illness
General
Chief Complaint: Eye Problems
Time Seen by Provider: 02/12/25 07:59
History of Present Illness
History of Present Illness:
TIME OF INITIAL ENCOUNTER: 8 AM
HPI: The patient presents due to right periorbital pain that started about 4 days ago. 2 days ago, he went to urgent care as was placed on antihistamine drops. This has not helped. The pain is primarily to the lids and pain does not necessarily
worsen with movement of the eye. At times his right eye lids are crusted shut to the point that he uses warm compress. The patient has associated general unwell feeling including nausea but has been able to drink 'plenty of' fluids.
EXAM:
GENERAL: Well appearing in no distress
HEENT: Moist oral mucosa, there is marked conjunctival injection with slight scleral chemosis, there is no dendritic fluorescein uptake on fluorescein exam
NEUROLOGIC: Excellent strength all extremities, no obvious coordination deficits
PSYCHIATRIC: Appropriate mental status, normal insight and judgement
EXTREMITIES: Nontender, no edema, moves all extremities equally
SKIN: Patchy erythema along with some subtle subcentimeter erythematous ovoid lesions, there is a deeper ulcerative lesion to the lateral aspect of the right upper lid, very subtle lesions also involving the right side of the forehead concerning for
shingles type of rash
NUMBER AND COMPLEXITY OF PROBLEMS ADDRESSED AT THE ENCOUNTER
� Chronic conditions affecting care: Former smoker, diverticular disease, TIA in 2024 on aspirin/Plavix, DON intolerant to CPAP
� Acute Exacerbation and/or Progression of Chronic Illness: This is an acute problem
� Differential Diagnosis includes: Shingles, periorbital cellulitis, conjunctivitis, iritis
AMOUNT AND/OR COMPLEXITY OF DATA TO BE REVIEWED AND ANALYZED
� I performed an independent evaluation of and my interpretation is:
EKG:
CT:
X-rays:
Laboratory Studies:
Other:
� Review of other/old records: I reviewed records including last hospitalization for TIA that was felt to be related to hypertension
� Clinical information was obtained by an independent historian: None needed
� Prescriptions/Medications Considered but not given:
� Further testing considered but not performed: Given the associated nausea and general unwell feeling I offered and considered lab work and IV fluids over the patient states that he feels well-hydrated and feels comfortable just
trying the oral medication
RISK OF COMPLICATIONS AND/OR MORBIDITY OR MORTALITY OF PATIENT MANAGEMENT
� Social determinants of health affecting care: Lives at home
� Discussion with other providers: I sent message to run boat operator on-call, Dr. Brown to help expedite close outpatient follow-up�Recommends to add erythromycin ointment and can see in the office today or tomorrow
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 Symptoms started just over 72 hours ago but will still try Valtrex. I
have also added Augmentin for the possibility of bacterial superinfection/periorbital cellulitis.
ANY OTHER UPDATES:
Past History
Past History
ED Past Medical History: None and Other (Renal insufficiency, diverticulosis, previous prostate cancer with CyberKnife surgery, diverticulitis); Negative HTN, Hypercholesterolemia, IDDM or NIDDM
ED Past Surgical History: None
Social History
Tobacco: Former smoker
Alcohol: None
Family History
Family History: Other (Mother with lung cancer, father with COPD)
Phy Exam
Physical Exam
Physical Exam:
See HPI
Course
Orders/Labs/Results
Orders:
Orders
02/12/25 08:20
Amoxicillin 875 mg/Clav 125 mg [Augmentin 875 mg/125 mg] 1 tablet PO NOW STA
Ondansetron Orally Disint [Zofran Odt (Orally Disintegrating)] 4 mg PO NOW STA
Valacyclovir HCl [Valtrex] 1,000 mg PO NOW STA
02/12/25 08:32
Fluorescein Sodium [Ful-Elisa] 2 mg .ROUTE .[facility]
Tetracaine HCl [Tetracaine 0.5% Ophthalmic Solution] 1 drop .ROUTE .[facility] ONE
Vital Signs
Initial and Last Documented VS:
Initial Vital Signs
Temp Pulse Resp BP Pulse Ox
36.6 C 85 18 140/102 98
02/12/25 07:28 02/12/25 07:28 02/12/25 07:28 02/12/25 07:28 02/12/25 07:28
Last Documented Vital Signs
Temp Pulse Resp BP Pulse Ox
36.6 C 85 18 140/102 98
02/12/25 07:28 02/12/25 07:28 02/12/25 07:28 02/12/25 07:28 02/12/25 07:28
*Critical Care Note
Total Time (30-74mins, 75-104mins- exclusive of procedures): Not Applicable
ED Attending Note
-
Portions of this chart may have been created with voice recognition software.� Occasional wrong word or��sound alike� substitutions may have occurred due to the inherent limitations of voice recognition software.
Discharge Plan
Departure
Patient Disposition: Home (Routine Discharge)
Date of Disposition: 02/12/25
Time of Disposition: 08:
Patient with high blood pressure during this ER visit?: Yes
Discharge Problem:
Herpes zoster ophthalmicus of right eye
Instructions: Shingles, BLOOD PRESSURE
Prescriptions:
New
valacyclovir [Valtrex] 1 gram tablet
1,000 mg PO TID Qty: 21 0RF
amoxicillin-pot clavulanate 875-125 mg tablet
1 tab PO Q12H Qty: 14 0RF
ondansetron HCl 4 mg tablet
4 mg PO Q8H PRN (Reason: nausea and vomiting) Qty: 14 0RF
erythromycin 5 mg/gram (0.5 %) ointment
0.5 inch ophthalmic (eye) TID Qty: 3.5 0RF
Rx Instructions:
right eye
No Action
alprazolam 0.5 MG tablet
0.5 - 1 mg PO HS
Patient Comments:
10/06/24: last filled 09/18/24 for 60 tabs over 30 days
therapeutic multivitamin Tablet
1 tab PO DAILY
ascorbic acid (vitamin C) [Vitamin C] 500 mg Tablet
500 mg PO DAILY
atorvastatin 40 mg Tablet
40 mg PO QPM Qty: 30 0RF
clopidogrel 75 mg Tablet
75 mg PO DAILY Qty: 19 0RF
amlodipine 10 mg Tablet
10 mg PO DAILY Qty: 30 0RF
aspirin 81 mg Tablet,Chewable
81 mg PO DAILY Qty: 0 0RF
Activity Restrictions/Additional Instructions:
I suspect you have herpes zoster ophthalmicus. I recommend that you also follow-up with an run boat operator�you could either see the one that you saw near [place] in the past or have given you the contact information for an run boat operator
associated with Dr. Kevin Gutierrez.
Interventions
Interventions:
*Risk Screen - Suicide Last Done: 02/12/25 07:28
*General Assessment Last Done: 02/12/25 07:28
*Neglect/Abuse Screening Last Done: 02/12/25 07:28
*ED- Fall Risk Assessment Last Done: 02/12/25 08:36
*Nursing Disposition Last Done: 02/12/25 08:36
ED- Cardiac Assessment Last Done: 02/12/25 08:00
ED- Neurological Assessment Last Done: 02/12/25 08:09
ED- Pulmonary Assessment Last Done: 02/12/25 08:09
Discharge Date and Time
Discharge Date/Time: 02/12/25 08:37
Print Language: SPANISH
[2025-02-12] MEDS: VALTREX 1000 MG PO (08:27)
[2025-02-12] MEDS: ZOFRAN ODT (ORALLY DISINTEGRATING) 4 MG PO (08:27)
[2025-02-12] MEDS: AUGMENTIN 875 MG/125 MG 1 TABLET PO (08:27)
== END 2025-02-12 08:37 | disposition home or self-care (01) ==
LOC: EMR 07:27
PROVIDERS: EMERGENCY PHYSICIAN Emergency Medicine; FAMILY PHYSICIAN Family Medicine
DX: B02.30 Zoster ocular disease, unspecified (principal); N28.9 Disorder of kidney and ureter, unspecified; Z80.1 Family history of malignant neoplasm of trachea, bronchus and lung; Z85.46 Personal history of malignant neoplasm of prostate; Z87.891 Personal history of nicotine dependence
CPT/HCPCS: 99282